=== PATIENT | female | born 1945 | race Caucasian/White ===

== ENCOUNTER 2018-08-27 18:29 | Inpatient (IN) | payer OTHER, MEDICARE ==
[~2018-08-27] VITALS: Ht 160 cm; Wt 55.1 kg
[~2018-08-27 18:29] MED LIST: OMNIPAQUE 350 MG/ML, 100ML BOTTLE ONE
[2018-08-27] MEDS ORDERED: ONDANSETRON 2MG/ML, 2ML ONE (18:59)
--- NOTE | 2018-08-27 19:28 | NUR ---
REPORT RC'VD FROM SHAHLA SANDERS. PT RESTING IN [facility], AWAKENS EASILY, UNDERSTANDS POC. LABS DRAWN. Addendum: 08/27/18 at 1929 by HBENSON IVF INFUSING.
[2018-08-27] MEDS ORDERED: ONDANSETRON 2MG/ML, 2ML IVPush ONE (19:30)
[2018-08-27 19:36] LABS: BASOPHILS # (AUTO) 0.03 x10^3/uL (0-0.1); BASOPHILS % (AUTO) 0 % (0-1); EOSINOPHILS # (AUTO) 0.14 x10^3/uL (0-0.4); EOSINOPHILS % (AUTO) 1 % (1-7); LYMPHOCYTES # (AUTO) 1.81 x10^3/uL (1-3.4); LYMPHOCYTES % (AUTO) 17 % (22-44); MD NO; MEAN CORPUSCULAR HEMOGLOBIN 29.8 pg (27.0-34.8); MEAN CORPUSCULAR HGB CONC 33.3 g/dL (32.4-35.8); MEAN CORPUSCULAR VOLUME 89.3 fL (80-100); MEAN PLATELET VOLUME 8.7 fL (7.4-10.4); MONOCYTES # (AUTO) 0.37 x10^3/uL (0.2-0.8); MONOCYTES % (AUTO) 4 % (2-9); NEUTROPHILS # (AUTO) 8.38 x10^3/uL (1.8-6.8); NEUTROPHILS % (AUTO) 78 % (42-75); PLATELET COUNT 253 x10^3/uL (130-400); RED BLOOD COUNT 5.12 x10^6/uL (3.82-5.3)
[2018-08-27 19:46] LABS: ALANINE AMINOTRANSFERASE 13 U/L (12-78); ALBUMIN 3.8 g/dL (3.4-5.0); ANION GAP 9 mmol/L (5-15); CALCIUM 9.8 mg/dL (8.5-10.1); CHLORIDE 112 mmol/L (98-107); CREATININE 0.99 mg/dL (0.55-1.02)
[2018-08-27 19:50] LABS: ALKALINE PHOSPHATASE 152 U/L (45-117); BILIRUBIN,TOTAL 0.4 mg/dL (0.2-1.0); TOTAL PROTEIN 6.6 g/dL (6.4-8.2); TROPONIN I < 0.015 ng/mL (0.000-0.045)
--- NOTE | 2018-08-27 19:53 | NUR ---
RETURNED. PT TO CT VIA [facility].
[2018-08-27 20:47] LABS: MICROSCOPIC NOT IND
[2018-08-27 20:51] LABS: CULTURE INDICATED? NO
[2018-08-27] MEDS ORDERED: ONDANSETRON 2MG/ML, 2ML IVPush PRN ×2 (21:00→22:00)
--- NOTE | 2018-08-27 21:11 | NUR ---
ADMITTING MD AT .
[2018-08-27] MEDS ORDERED: CARVEDILOL (21:13)
[2018-08-27] MEDS ORDERED: VITAMIN D (21:13)
[2018-08-27] MEDS ORDERED: ASPIRIN (21:13)
[2018-08-27] MEDS ORDERED: STATIN (21:13)
[2018-08-27] MEDS ORDERED: SODIUM CHLORIDE 0.9% 1,000 ML IV SCH (21:32)
[2018-08-27] MEDS ORDERED: LABETALOL 20 MG/4 ML IVPush PRN (22:00)
--- NOTE | 2018-08-27 22:08 | NUR ---
PT TO ABD XR VIA [facility].
[2018-08-27 22:10] LABS: HEMOGLOBIN A1C 5.6 % (4.2-6.3)
--- NOTE | 2018-08-27 22:28 | NUR ---
ASSISTED PT UP TO BS FOR SECOND TIME. PT BECAME NAUSEOUS UPON SITTING UP. VOIDING WITHOUT DIFFICULTY.
[2018-08-27 23:05] VITALS: BP 166/87
[2018-08-27] MEDS: ENOXAPARIN 60 MG/0.6 ML SQ SCH (23:11)
--- NOTE | 2018-08-27 23:11 | NUR ---
Note [email or web address] in EDM - 08/27/18 at 2315 by ROSHAN PT VERBALIZES SOME RELIEF AFTER PAIN MEDS. D/C INSTRUCTIONS, MEDS, & F/U APPT RV'WD WITH PT, SHE VERBALIZES UNDERSTANDING. ASSISTED PT OUT OF ED VIA WC. FRIEND TO DRIVE PT HOME.
[2018-08-28 01:09] VITALS: BP 161/85
[2018-08-28 04:19] LABS: BASOPHILS # (AUTO) 0.04 x10^3/uL (0-0.1); BASOPHILS % (AUTO) 1 % (0-1); EOSINOPHILS % (AUTO) 0 % (1-7); LYMPHOCYTES # (AUTO) 1.13 x10^3/uL (1-3.4); LYMPHOCYTES % (AUTO) 13 % (22-44); MD NO; MEAN CORPUSCULAR HEMOGLOBIN 30.2 pg (27.0-34.8); MEAN CORPUSCULAR HGB CONC 33.6 g/dL (32.4-35.8); MEAN CORPUSCULAR VOLUME 89.9 fL (80-100); MEAN PLATELET VOLUME 8.9 fL (7.4-10.4); MONOCYTES # (AUTO) 0.18 x10^3/uL (0.2-0.8); MONOCYTES % (AUTO) 2 % (2-9); NEUTROPHILS # (AUTO) 7.07 x10^3/uL (1.8-6.8); NEUTROPHILS % (AUTO) 84 % (42-75); PLATELET COUNT 254 x10^3/uL (130-400); RED BLOOD COUNT 5.19 x10^6/uL (3.82-5.3); RED CELL DISTRIBUTION WIDTH 13.7 % (9.6-15.2)
[2018-08-28 04:20] LABS: ALANINE AMINOTRANSFERASE 19 U/L (12-78); ALBUMIN 3.6 g/dL (3.4-5.0); ANION GAP 9 mmol/L (5-15); CALCIUM 9.7 mg/dL (8.5-10.1); CHLORIDE 112 mmol/L (98-107); CREATININE 0.76 mg/dL (0.55-1.02)
[2018-08-28 04:22] LABS: ALKALINE PHOSPHATASE 166 U/L (45-117); BILIRUBIN,TOTAL 0.7 mg/dL (0.2-1.0); TOTAL PROTEIN 6.8 g/dL (6.4-8.2)
[2018-08-28 07:14] VITALS: BP 172/77
[2018-08-28] MEDS ORDERED: POTASSIUM CHLORIDE 20 MEQ TAB.ER.PRT PO ONE (09:00)
[2018-08-28] MEDS: ENOXAPARIN 60 MG/0.6 ML SQ SCH (11:01)
[2018-08-28 14:00] VITALS: BP 184/93
[2018-08-28 14:47] LABS: TROPONIN I < 0.015 ng/mL (0.000-0.045)
[2018-08-28] MEDS ORDERED: CARVEDILOL 3.125 MG TABLET ONE (15:16)
[2018-08-28 16:14] VITALS: BP 165/84
[2018-08-28] MEDS ORDERED: CARVEDILOL 3.125 MG TABLET PO SCH (18:00)
[2018-08-28] MEDS ORDERED: CARV25TA PO (18:08)
[2018-08-28] MEDS ORDERED: AMLO10TA8 PO (18:11)
[2018-08-28] MEDS ORDERED: ATOR40TA78 PO (18:11)
[2018-08-28] MEDS ORDERED: CARVEDILOL 25 MG TABLET ONE (18:41)
[2018-08-28 18:45] VITALS: BP 154/93
[2018-08-28] MEDS: CARVEDILOL 25 MG TABLET PO SCH (18:45)
[2018-08-28] MEDS ORDERED: CARVEDILOL 25 MG TABLET PO ONE (19:30)
[2018-08-28 19:32] VITALS: BP 134/86
[2018-08-28] MEDS: ATORVASTATIN 40 MG TABLET PO SCH (21:25)
[2018-08-28] MEDS: APIXABAN 5 MG TABLET PO SCH (21:25)
[2018-08-28] MEDS: SODIUM CHLORIDE 0.9% 1,000 ML IV SCH (21:26)
[2018-08-29 01:00] VITALS: BP 148/80
[2018-08-29 05:39] LABS: ANION GAP 8 mmol/L (5-15); CALCIUM 9.5 mg/dL (8.5-10.1); CHLORIDE 113 mmol/L (98-107)
[2018-08-29 05:42] LABS: CHOL/HDL RATIO 6.1; CHOLESTEROL, TOTAL 239 mg/dL (140-239); CREATININE 0.84 mg/dL (0.55-1.02); HDL CHOL % 16 % (28-40); HDL CHOLESTEROL (DIRECT) 39 mg/dL (40-60); LDL CHOLESTEROL,CALCULATED 161 mg/dL (54-169); LDL/HDL RATIO 4.1 (0.5-3.0); TRIGLYCERIDES 197 mg/dL (50-200); VLDL CHOLESTEROL 39 mg/dL (0-25)
[2018-08-29] MEDS: ASPIRIN 81 MG TABLET EC PO SCH ×2 (06:03→11:50)
[2018-08-29 06:07] VITALS: BP 148/89
[2018-08-29 08:47] VITALS: BP 161/81
[2018-08-29] MEDS ORDERED: LISINOPRIL 10 MG TABLET PO SCH (09:00)
[2018-08-29] MEDS ORDERED: REGADENOSON 0.4 MG/5 ML SYRINGE ONE (09:14)
[2018-08-29] MEDS ORDERED: APIX5TAB PO (10:42)
[2018-08-29] MEDS ORDERED: LISI-167 PO (10:42)
[2018-08-29] MEDS: AMLODIPINE 10 MG TAB PO SCH (11:49)
[2018-08-29] MEDS: APIXABAN 5 MG TABLET PO SCH ×2 (11:50→20:39)
[2018-08-29] MEDS: CARVEDILOL 25 MG TABLET PO SCH ×2 (11:50→20:39)
[2018-08-29 12:30] VITALS: BP 144/82
[2018-08-29] MEDS: SODIUM CHLORIDE 0.9% 1,000 ML IV SCH (14:30)
[2018-08-29 20:37] VITALS: BP 179/84
[2018-08-29] MEDS: ATORVASTATIN 40 MG TABLET PO SCH (20:39)
[2018-08-29 22:15] VITALS: BP 138/71
[2018-08-30 03:16] VITALS: BP 156/59
[2018-08-30] MEDS: ASPIRIN 81 MG TABLET EC PO SCH (05:53)
[2018-08-30] MEDS: SODIUM CHLORIDE 0.9% 1,000 ML IV SCH (06:01)
[2018-08-30 07:16] VITALS: BP 154/85
[2018-08-30] MEDS ORDERED: REGADENOSON 0.4 MG/5 ML SYRINGE ONE (07:44)
[2018-08-30] MEDS: APIXABAN 5 MG TABLET PO SCH (07:45)
[2018-08-30] MEDS: CARVEDILOL 25 MG TABLET PO SCH (07:45)
[2018-08-30] MEDS: AMLODIPINE 10 MG TAB PO SCH (07:45)
[2018-08-30] MEDS ORDERED: LISINOPRIL 20 MG TABLET PO SCH ×2 (09:00→21:00)
[2018-08-30 12:18] VITALS: BP 153/81
== END 2018-08-30 17:28 | disposition home or self-care (01) | DRG 66 ==
LOC: ED 20:45 → 4WST 20:58
PROVIDERS: ADMIT Family Medicine; ATTEND Family Medicine
DX: I63.9 Cerebral infarction, unspecified (principal); E86.0 Dehydration; E87.6 Hypokalemia; F17.200 Nicotine dependence, unspecified, uncomplicated; I10 Essential (primary) hypertension; I25.10 Atherosclerotic heart disease of native coronary artery without angina pectoris; Z79.01 Long term (current) use of anticoagulants; Z86.73 Personal history of transient ischemic attack (TIA), and cerebral infarction without residual deficits; Z95.5 Presence of coronary angioplasty implant and graft; Z88.0 Allergy status to penicillin; Z79.899 Other long term (current) drug therapy; Z79.82 Long term (current) use of aspirin; I48.91 Unspecified atrial fibrillation; Z90.49 Acquired absence of other specified parts of digestive tract
CPT/HCPCS: 36415; 70450; 70496; 70498; 70551; 71045; 74018; 78452; 80048; 80053; 80061; 81003; 83036; 83735; 84484; 85025; 93005; 93017; 93306; 99285; G0378; J1650; J2405; J2785; Q9967; A9502; C9898; J7030